=== PATIENT | female | born 1990 | race Caucasian/White ===

== ENCOUNTER 2019-02-18 21:43 | Emergency (ER) | payer BC, OTHER ==
[~2019-02-18] VITALS: Ht 160 cm; Wt 40.7 kg
[2019-02-18 21:51] VITALS: Ht 160 cm; Wt 40.7 kg
--- NOTE | 2019-02-18 23:41 | ERD ---
ER Documentation Chief Complaint Chief Complaint RIGHT ANKLE INJ; [facility] HPI This is a 29-year-old female who presents for evaluation of mechanical fall about 3 hours ago, she has pain to her right foot on the dorsal side, the pain radiates, when she lifts her foot up. She has no numbness or tingling ROS All systems reviewed and are negative except as per history of present illness. Allergies Allergies: Coded Allergies: No Known Drug Allergies (Verified Allergy, Mild, 03/23/11) PMhx/Soc Medical and Surgical Hx: pt denies Medical Hx, pt denies Surgical Hx Hx Neurological Disorder: No Hx Respiratory Disorders: No Hx Cardiac Disorders: No Hx Alcohol Use: Yes (RARELY) Hx Substance Use: No Hx Tobacco Use: No Physical Exam Vitals Vital Signs Date Temp Pulse Resp B/P (MAP) Pulse Ox O2 O2 Flow FiO2 Time Delivery Rate 02/18/19 99.2 69 19 157/75 97 21:51 (102) Physical Exam Const: Afebrile, nontoxic Head: Atraumatic Eyes: Normal conjunctiva ENT: Normal external ears, nose and mouth. Neck: Resp: Normal respiratory effort Cardio: Abd: Skin: Back: Ext: The right foot there is ecchymosis over the dorsum of the foot, distal to the ankle, it is tender to touch, there is no tenderness over the Lisfranc joint, sensation is intact light touch distally, posterior tibialis pulses 2+. Neur: Awake and alert Psych: Normal mood and affect Procedures/MDM 29-year-old female presents for pain along her ankle, with bruising and ecchymosis, x-ray shows no evidence of fracture, patient provided with Rodrigo wrap, as well as crutches, strict return precautions given, at discharge patient in no distress. X-ray Ankle 3V Interpreted by me: Bones: No fracture Joints: No dislocation Foreign Body: None Departure Diagnosis: Primary Impression: Ankle injury Encounter type: initial encounter Laterality: unspecified laterality Qualified Codes: S99.919A - Unspecified injury of unspecified ankle, initial encounter Condition: Stable FRANSISCO CANTRELL MD February 18, 2019 23:41
[2019-02-19 00:40] VITALS: BP 114/78; PULSE 60; RESP 16
== END 2019-02-19 00:40 | disposition home or self-care (01) ==
LOC: E/R 21:43
DX: S90.01XA Contusion of right ankle, initial encounter (principal); W18.39XA Other fall on same level, initial encounter; Y92.9 Unspecified place or not applicable